=== PATIENT | female | born 1960 | race Caucasian/White ===

== ENCOUNTER → 2016-05-11 | Outpatient (CLI) | payer OTHER ==
[2016-05-11 12:38] LABS: Basophils # (A) 0.1 k/uL (0-0.2); Basophils % (A) 1 %; CH 29.5; CHCM 32.8; Eosinophils # (A) 0.2 k/uL (0-0.7); Eosinophils % (A) 2 %; HCT 48.3 % (34.0-46.0); HDW 2.38; HGB 15.5 gm/dL (11.4-16.0); Luc % (Auto) 3; Lymphocytes # (A) 2.6 k/uL (1.0-4.8); Lymphocytes % (A) 33 %; MCHC 32.1 g/dL (31.0-37.0); MCV 90.5 fL (80.0-100.0); Mean Platelet Volume 7.5; Monocytes # (A) 0.5 k/uL (0-1.0); Monocytes % (A) 6 %; Neutrophils # (A) 4.4 k/uL (1.3-7.7); Neutrophils % (A) 56 %; RBC 5.34 m/uL (3.80-5.40); RDW 13.1 % (11.5-15.5); WBC 7.9 k/uL (3.8-10.6); WBC (Perox) 8.14
[2016-05-11 13:02] LABS: ALT 34 U/L (9-52); AST 21 U/L (14-36); Alkaline Phosphatase 75 U/L (38-126); Bilirubin, Delta 0.5 mg/dL (0.0-0.2); Total Bilirubin 0.8 mg/dL (0.2-1.3); Total Protein 6.8 g/dL (6.3-8.2)
[2016-05-11 14:17] LABS: Carbamazepine (Tegretol) <3.0 ug/mL
== END | disposition home or self-care (01) ==
LOC: LABWHC1 12:09
PROVIDERS: ATTEND Nurse Practitioner Family
DX: Z51.81 Encounter for therapeutic drug level monitoring (principal); Z79.899 Other long term (current) drug therapy
CPT/HCPCS: 36415; 80076; 80156; 85025

== ENCOUNTER 2016-10-03 16:37 | Emergency (ER) | payer OTHER ==
[2016-10-03] MEDS ORDERED: ASPIRIN 81 MG CHEW PO STA (16:59)
[2016-10-03] MEDS ORDERED: NITROGLYCERIN OINT 1 INCH/GM PACKET TOPICAL STA (16:59)
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
[2016-10-03 17:24] LABS: Basophils # (A) 0.1 k/uL (0-0.2); Basophils % (A) 1 %; CH 29.8; CHCM 32.7; Eosinophils # (A) 0.2 k/uL (0-0.7); Eosinophils % (A) 2 %; HCT 46.6 % (34.0-46.0); HDW 2.37; HGB 15.3 gm/dL (11.4-16.0); Luc % (Auto) 3; Lymphocytes # (A) 3.4 k/uL (1.0-4.8); Lymphocytes % (A) 34 %; MCH 29.9 pg (25.0-35.0); MCHC 32.7 g/dL (31.0-37.0); MCV 91.5 fL (80.0-100.0); Mean Platelet Volume 7.2; Monocytes # (A) 0.4 k/uL (0-1.0); Monocytes % (A) 4 %; Neutrophils # (A) 5.7 k/uL (1.3-7.7); Neutrophils % (A) 57 %; WBC 10.1 k/uL (3.8-10.6); WBC (Perox) 9.56
[2016-10-03 17:31] LABS: Partial Thromboplastin Time 25.1 sec (22.0-30.0); Prothrombin Time 10.1 sec (9.0-12.0)
[2016-10-03 17:32] LABS: ALT 24 U/L (9-52); AST 19 U/L (14-36); Alkaline Phosphatase 88 U/L (38-126); Anion Gap 10 mmol/L; Blood Urea Nitrogen 8 mg/dL (7-17); Carbon Dioxide 18 mmol/L (22-30); Chloride 113 mmol/L (98-107); Glucose 99 mg/dL (74-99); Non-African American GFR(MDRD) >60 (>60 ml/min/1.73 sqM); Potassium 3.6 mmol/L (3.5-5.1); Sodium 141 mmol/L (137-145); Total Bilirubin 0.4 mg/dL (0.2-1.3); Total Protein 6.8 g/dL (6.3-8.2)
[2016-10-03 17:59] LABS: Creatine Kinase 88 U/L (30-135)
[2016-10-03 18:00] VITALS: TEMP 98.3
--- NOTE | 2016-10-03 18:08 | XR ---
EXAMINATION TYPE: XR chest 2V DATE OF EXAM: 10/03/2016 COMPARISON: 12/26/2015 HISTORY: Chest pain TECHNIQUE: Frontal and lateral views of the chest are obtained. FINDINGS: There is no heart failure nor confluent pneumonic infiltrate. There are chest leads. There are no hilar masses. Bony thorax is intact. IMPRESSION: Normal chest. No change.
[2016-10-03 18:11] LABS: Creatine Kinase MB 0.7 ng/mL (0.0-2.4); Troponin I <0.012 ng/mL (0.000-0.034)
[2016-10-03] MEDS ORDERED: NITROGLYCERIN SL TABS 0.4 MG TAB SUBLINGUAL PRN (18:55)
[2016-10-03 19:23] VITALS: BP 154/80; PULSE 53; RESP 20
[2016-10-04] MEDS ORDERED: NITROGLYCERIN OINT 1 INCH/GM PACKET TOPICAL SCH
[2016-10-04] MEDS ORDERED: ASPIRIN 325 MG TAB PO SCH (09:00)
== END 2016-10-03 20:40 | disposition left against medical advice (07) ==
LOC: EC 16:37 → 3OBS 18:56 → UNDOADMOB 18:56 → EC 20:40
DX: R07.9 Chest pain, unspecified (principal); R06.02 Shortness of breath; J44.9 Chronic obstructive pulmonary disease, unspecified; M79.7 Fibromyalgia; M19.90 Unspecified osteoarthritis, unspecified site; G40.909 Epilepsy, unspecified, not intractable, without status epilepticus; F41.0 Panic disorder [episodic paroxysmal anxiety]; F31.9 Bipolar disorder, unspecified; F17.200 Nicotine dependence, unspecified, uncomplicated; Z79.899 Other long term (current) drug therapy; Z79.82 Long term (current) use of aspirin; Z79.02 Long term (current) use of antithrombotics/antiplatelets; Z79.51 Long term (current) use of inhaled steroids; Z86.73 Personal history of transient ischemic attack (TIA), and cerebral infarction without residual deficits; Z95.818 Presence of other cardiac implants and grafts
CPT/HCPCS: 36415; 71020; 80053; 82550; 82553; 83735; 84484; 85025; 85610; 85730; 93005; 99285

== ENCOUNTER → 2016-10-04 | Outpatient (CLI) | payer OTHER ==
--- NOTE | 2016-10-04 13:19 | MM ---
Reason for exam: screening (asymptomatic). Last mammogram was performed 2 years and 3 months ago. History: Patient is postmenopausal and has history of ovarian cancer at age 34. Family history of breast cancer in maternal aunt, breast cancer in maternal grandmother, and breast cancer in paternal grandmother. Physical Findings: A clinical breast exam by your physician is recommended on an annual basis and results should be correlated with mammographic findings. MG Screening Mammo w CAD Bilateral CC and MLO view(s) were taken. Prior study comparison: July 16, 2014, bilateral MG screening mammo w CAD. May 18, 2010, bilateral digital screening mammo w/CAD. There are scattered fibroglandular densities. No significant changes when compared with prior studies. ASSESSMENT: Benign, BI-RAD 2 RECOMMENDATION: Routine screening mammogram of both breasts in 1 year.
== END | disposition home or self-care (01) ==
LOC: RADMAMWWP 11:27
PROVIDERS: ATTEND Family Medicine
DX: Z12.31 Encounter for screening mammogram for malignant neoplasm of breast (principal)

== ENCOUNTER → 2016-10-26 | Outpatient (CLI) | payer OTHER ==
--- NOTE | 2016-10-30 10:26 | XR ---
Left hip HISTORY: Chronic pain 2 views of the left hip No comparisons There is marginal spurring present, some remodeling present at the femoral head. Bone mineralization mildly reduced. Alignment and joint space maintained. Possible vascular calcification within the pelv is. IMPRESSION: Osteoarthritis
== END | disposition home or self-care (01) ==
LOC: RADXRYALE 15:54
PROVIDERS: ATTEND Physician Assistant Medical
DX: M16.12 Unilateral primary osteoarthritis, left hip (principal)
CPT/HCPCS: 73502

== ENCOUNTER 2017-03-12 09:28 | Day surgery (SDC) | payer OTHER ==
[2017-03-11 08:15] VITALS: BMI 28.4
[~2017-03-12 09:28] MED LIST: LACTATED RINGERS 1,000 ML IV SCH
[2017-03-12 10:00] VITALS: TEMP 97
[2017-03-12] MEDS ORDERED: LIDOCAINE 1% 20 ML VIAL (10MG/ML) FOR IV START INTRADERMA ONE (10:04)
[2017-03-12] MEDS ORDERED: PROPOFOL 10 MG/ML 20 ML VIAL IV ONE (10:50)
[2017-03-12] MEDS ORDERED: LIDOCAINE 1% INJ 10MG/ML (20 ML MDV) ONE (10:50)
--- NOTE | 2017-03-12 11:47 | P.PCN ---
Date of Procedure: 03/12/17 Procedure(s) Performed: Procedure: Esophagogastroduodenoscopy and biopsy. Preoperative diagnosis: Gastroesophageal reflux symptoms worsening over last year, nausea, vomiting and intermittent dysphagia. Postoperative diagnosis: 1. Sliding hiatal hernia with LA grade B distal esophagitis and possible eosinophilic esophagitis. 2. Mild antral gastritis. 3. Multiple biopsies obtained from the duodenum, antrum and esophagus. Preparation and sedation: Was provided by anesthesia. Brief clinical history: The patient is a 56-year-old female who is referred for this evaluation because of chronic gastroesophageal reflux symptoms that has progressed over the last year. She has been having worsening nausea and vomiting and intermittent dysphagia. She is not on any treatment at this time. This evaluation is scheduled to assess for complicated reflux disease or other pathology. Procedure: With the patient on her left lateral decubitus position and after informed consent and adequate sedation, I passed the Olympus-GIF 160 video upper endoscope through the cricopharyngeus down the esophagus. GE junction was around 38 cm from the incisors and there was a sliding 1-2 cm hiatal hernia. The esophagus showed short erosions and superficial ulcerations distally terminating at the level of the GE junction consistent with LA grade B distal esophagitis. There were no strictures or Roca's esophagus. The endoscope was then passed into the stomach which was insufflated with air and inspected in detail including the retroflex view in the cardia. There was some mottling and erythema in the antrum but no ulcers or erosions. Pyloric channel , duodenal bulb, post bulbar area and descending duodenum appeared within normal limits. I obtained biopsies from the duodenum, antrum and esophagus then the endoscope was withdrawn. The patient tolerated the procedure well. Plan: The patient was reassured. I advised antireflux diet and measures. I recommended PPI such as omeprazole 20 mg before breakfast daily and make further adjustments based on her response. I will see her in follow-up in few weeks and I will keep you updated on her progress. She will follow-up with you as planned.
[2017-03-12 12:09] VITALS: BP 138/73; PULSE 50; RESP 20
== END 2017-03-12 12:27 | disposition home or self-care (01) ==
LOC: ORWHC2ENDO 09:28
DX: K21.0 Gastro-esophageal reflux disease with esophagitis (principal); K29.50 Unspecified chronic gastritis without bleeding; K44.9 Diaphragmatic hernia without obstruction or gangrene; I10 Essential (primary) hypertension; E78.5 Hyperlipidemia, unspecified; J44.9 Chronic obstructive pulmonary disease, unspecified; M79.7 Fibromyalgia; M19.90 Unspecified osteoarthritis, unspecified site; R56.9 Unspecified convulsions; F17.200 Nicotine dependence, unspecified, uncomplicated; Z79.891 Long term (current) use of opiate analgesic; Z79.02 Long term (current) use of antithrombotics/antiplatelets; Z79.82 Long term (current) use of aspirin; Z79.899 Other long term (current) drug therapy; Z86.73 Personal history of transient ischemic attack (TIA), and cerebral infarction without residual deficits
CPT/HCPCS: 43239; 88342; 88305; J2001; J2704

== ENCOUNTER → 2017-05-02 | Outpatient (CLI) | payer OTHER ==
--- NOTE | 2017-05-03 08:14 | XR ---
EXAMINATION TYPE: XR ribs RT w pa chest xray DATE OF EXAM: 05/02/2017 COMPARISON: NONE HISTORY: Pain TECHNIQUE: One view the chest and 5 views of the ribs are submitted FINDINGS: Lung is clear. No pleural effusion arthropathy of the shoulder. Rib cage is intact IMPRESSION: No acute displaced rib fracture.
== END | disposition home or self-care (01) ==
LOC: RADXRYALE 16:50
PROVIDERS: ATTEND Physician Assistant Medical
DX: S20.219A Contusion of unspecified front wall of thorax, initial encounter (principal)

== ENCOUNTER → 2017-07-04 | Outpatient (CLI) | payer OTHER ==
--- NOTE | 2017-07-04 11:47 | XR ---
EXAMINATION TYPE: XR knee complete bilateral DATE OF EXAM: 07/04/2017 COMPARISON: NONE HISTORY: Pain TECHNIQUE: 3 views are submitted bilaterally. FINDINGS: There is mild narrowing of the medial compartment of the knee joint and patellofemoral joint. Hypertr ophic spurring is noted involving the patella bilaterally. There is no acute fracture or dislocation. No erosive changes. IMPRESSION: 1. Mild osteoarthritis.
== END | disposition home or self-care (01) ==
LOC: RADXRYALE 11:16
PROVIDERS: ATTEND Physician Assistant Medical
DX: M17.11 Unilateral primary osteoarthritis, right knee (principal); M17.12 Unilateral primary osteoarthritis, left knee

== ENCOUNTER → 2019-01-05 | Outpatient (CLI) | payer OTHER ==
--- NOTE | 2019-01-05 17:21 | XR ---
Cervical spine HISTORY: Chronic pain and arm numbness 5 views of the cervical spine There is multilevel facet and uncovertebral joint arthropathy change present. Foraminal encroachment is present at C5-6 bilaterally, some right-sided foraminal encroachment at C3-4. There is multilevel spondylosis especially C5-6 and C6-7. Loss of disc height is present at intervertebral levels. C7-T1 is not well seen. Loss of normal cervical lordosis could be due to muscle spasm. Prevertebral soft ti ssues are normal. IMPRESSION: Degenerative disc disease, multilevel foraminal encroachment, facet arthropathy.
--- NOTE | 2019-01-06 08:27 | XR ---
Lumbosacral spine HISTORY: Pain, numbness in legs 5 views of the lumbosacral spine Lumbar vertebral bodies show preserved height and alignment. Bone mineralization is reduced. There is multilevel spondylosis. No evident spondylolysis. Loss of disc height present at the intervertebral levels especially L3-4, L4-5 and L5-S1. Sclerosis present in the posterior elements. Vascular calcifi cations noted incidentally in the aortoiliac distribution. IMPRESSION: Degenerative disc disease, facet arthropathy, osteopenia.
== END | disposition home or self-care (01) ==
LOC: RADXRYALE 15:54
PROVIDERS: ATTEND Physician Assistant Medical
DX: M50.30 Other cervical disc degeneration, unspecified cervical region (principal); M46.92 Unspecified inflammatory spondylopathy, cervical region; M51.36 Other intervertebral disc degeneration, lumbar region; M46.96 Unspecified inflammatory spondylopathy, lumbar region; M85.88 Other specified disorders of bone density and structure, other site
CPT/HCPCS: 72050; 72110

== ENCOUNTER → 2019-01-16 | Outpatient (CLI) | payer OTHER ==
--- NOTE | 2019-01-21 15:11 | P.ARTDOP ---
Arterial Doppler LOWER EXTREMITY ARTERIAL DOPPLER: DATE OF SERVICE: 01/16/2019 Reason for study: Bilateral leg pain. Doppler waveforms: Multiphasic bilaterally throughout. Pulse volume recording: []. Pressure gradients: None. Ankle-brachial indices: Greater than 1 bilaterally. Toe pressures: [] on the right, [] on the left Impression: Normal study.
== END | disposition home or self-care (01) ==
LOC: RADUSWWP 13:24
PROVIDERS: ATTEND Family Medicine
DX: M79.605 Pain in left leg (principal); M79.604 Pain in right leg; I25.10 Atherosclerotic heart disease of native coronary artery without angina pectoris; E78.5 Hyperlipidemia, unspecified
CPT/HCPCS: 93922

== ENCOUNTER → 2019-01-28 | Outpatient (CLI) | payer OTHER ==
--- NOTE | 2019-01-28 14:42 | MR ---
EXAMINATION TYPE: MR cervical spine wo con DATE OF EXAM: 01/28/2019 COMPARISON: Cervical spine x-rays dated 01/05/2019 HISTORY: Other cervical disc degeneration. Chronic neck pain. TECHNIQUE: Multiplanar, multisequence images of the cervical spine were acquired. FINDINGS: The cervical spine vertebral bodies maintain normal vertebral body heights and alignment. M ultilevel disc desiccation is seen. Spinal cord demonstrates mildly T2 hyperintense signal at the C6- C7 intervertebral level on sagittal T2-weighted nonfat sat image 7. This is ill-defined and not measu rable. There is volume loss of the cord related to myelomalacia rather than edema. Schmorl's node is seen in the inferior endplate of C6. No prevertebral soft tissue swelling. No bone marrow edema. Bone marrow signal is within normal limits. C2-C3: There is a focal central disc herniation contacting the ventral cervical cord creating mild sp inal canal stenosis. No neural foraminal narrowing. C3-C4: There is a small central disc herniation and uncovertebral hypertrophy creating mild bilateral neural foraminal narrowing and mild spinal canal stenosis. C4-C5: There is a small central disc herniation with slight mass effect on the ventral cervical cord obliterating the ventral subarachnoid space causing mild spinal canal stenosis. No significant neural foraminal narrowing. C5-C6: There is a left paracentral disc herniation creating moderate spinal canal stenosis with impre ssion on the spinal cord. This also creates severe left neural foraminal narrowing in combination wit h facet arthropathy and uncovertebral hypertrophy and moderate right neural foraminal narrowing. C6-C7: There is a left paracentral disc herniation with mass effect on the left lateral spinal cord a nd mild volume loss with slightly abnormal signal on sagittal images related to mild myelomalacia. Th ere is also uncovertebral hypertrophy and facet arthropathy creating severe left neural foraminal jerrod rowing and mild right neural foraminal narrowing. C7-T1: There is a broad-based disc bulge and disc desiccation without spinal canal stenosis nor neura l foraminal narrowing. IMPRESSION: 1. Left paracentral disc herniation at C5-C6 creating moderate spinal canal stenosis and severe left neural foraminal narrowing as well as moderate right neural foraminal narrowing secondary to degenera tive change. 2. Left paracentral disc herniation at C6-C7 creates moderate spinal canal stenosis and there is resu ltant mild focal myelomalacia subtly seen. There is also severe left neural foraminal narrowing and m ild right neural foraminal narrowing. 3. Small central disc herniations at C2-C5 creating mild spinal canal stenosis at these levels. Varia ble degrees of neural foraminal narrowing are detailed above on the basis of degenerative change.
== END | disposition home or self-care (01) ==
LOC: RADMRIMAIN 11:31
PROVIDERS: ATTEND Family Medicine
DX: M48.02 Spinal stenosis, cervical region (principal); M50.21 Other cervical disc displacement, high cervical region; M47.812 Spondylosis without myelopathy or radiculopathy, cervical region; G95.89 Other specified diseases of spinal cord
CPT/HCPCS: 72141

== ENCOUNTER → 2019-04-24 | Outpatient (CLI) | payer OTHER ==
--- NOTE | 2019-04-27 08:30 | XR ---
EXAMINATION TYPE: XR chest 2V DATE OF EXAM: 04/24/2019 COMPARISON: 05/02/2017 HISTORY: 58-year-old female preoperative evaluation TECHNIQUE: Frontal and lateral views FINDINGS: Heart upper limits of normal in size. Aorta and pulmonary vasculature within normal limits. Mild inte rstitial prominence is unchanged. No consolidation or pleural effusion. IMPRESSION: Chronic changes without acute cardiopulmonary process.
== END | disposition home or self-care (01) ==
LOC: RADXRYALE 15:46
PROVIDERS: ATTEND Physician Assistant Medical
DX: Z01.818 Encounter for other preprocedural examination (principal)
CPT/HCPCS: 71046

== ENCOUNTER → 2019-05-08 | Outpatient (CLI) | payer OTHER | END | disposition home or self-care (01) | LOC: LABPAT 13:02 | PROVIDERS: ATTEND Orthopaedic Surgery Orthopaedic Surgery of the Spine | DX: Z01.812 Encounter for preprocedural laboratory examination (principal); M48.02 Spinal stenosis, cervical region; Z51.81 Encounter for therapeutic drug level monitoring | CPT/HCPCS: 80053; 85025; 85610; 85730; 86850; 86900; 86901 ==

== ENCOUNTER 2019-05-13 09:08 | Day surgery (SDC) | payer OTHER ==
[2019-05-07 12:45] VITALS: BMI 33.3
[2019-05-08 14:10] LABS: Basophils # (A) 0.1 k/uL (0-0.2); Basophils % (A) 1 %; Eosinophils # (A) 0.1 k/uL (0-0.7); Eosinophils % (A) 1 %; HCT 46.6 % (34.0-46.0); HGB 14.6 gm/dL (11.4-16.0); Lymphocytes % (A) 32 %; MCH 27.8 pg (25.0-35.0); MCHC 31.3 g/dL (31.0-37.0); MCV 88.8 fL (80.0-100.0); Mean Platelet Volume 7.3; Monocytes # (A) 0.5 k/uL (0-1.0); Monocytes % (A) 5 %; Neutrophils # (A) 5.4 k/uL (1.3-7.7); Neutrophils % (A) 58 %; Platelet Count 289 k/uL (150-450); RBC 5.24 m/uL (3.80-5.40); RDW 13.4 % (11.5-15.5); WBC 9.3 k/uL (3.8-10.6)
[2019-05-08 14:13] LABS: ALT 27 U/L (4-34); AST 29 U/L (14-36); African American GFR (CKD) >90 (>60 ml/min/1.73 sqM); Albumin 4.1 g/dL (3.5-5.0); Alkaline Phosphatase 72 U/L (38-126); Anion Gap 8 mmol/L; Blood Urea Nitrogen 11 mg/dL (7-17); Calcium 9.2 mg/dL (8.4-10.2); Carbon Dioxide 23 mmol/L (22-30); Chloride 107 mmol/L (98-107); Glucose 93 mg/dL (74-99); Non-African American GFR(CKD) 78 (>60 ml/min/1.73 sqM); Potassium 4.5 mmol/L (3.5-5.1); Sodium 138 mmol/L (137-145); Total Bilirubin 0.4 mg/dL (0.2-1.3); Total Protein 6.8 g/dL (6.3-8.2)
[2019-05-08 14:33] LABS: INR 0.9 (<1.2); Partial Thromboplastin Time 22.9 sec (22.0-30.0); Prothrombin Time 9.8 sec (9.0-12.0)
[~2019-05-13 09:08] MED LIST changes: +BACITRACIN 50,000 UNIT, POLYMYXIN B 500,000 UNIT in SODIUM CHLORIDE 0.9% IRRIGATIO 1,00... IRRIGATION ONE; +DEXAMETHASONE SOD PHOSPHATE 10 MG/ML 1 ML VIAL IV ONE; +LIDOCAINE 1% 20 ML VIAL (10MG/ML) FOR IV START INTRADERMA PRN; +ONDANSETRON 4 MG/2 ML VIAL IVP ONE
[2019-05-13] MEDS ORDERED: MIDAZOLAM 2 MG/2 ML VIAL IV ONE (10:48)
[2019-05-13] MEDS ORDERED: SUCCINYLCHOLINE CHLORIDE 100 MG/5 ML SYR IV ONE (11:17)
[2019-05-13] MEDS ORDERED: ePHEDrine SULFATE/0.9% NACL/PF 50 MG/5 ML SYRINGE IV ONE (11:17)
[2019-05-13] MEDS ORDERED: PROPOFOL 10 MG/ML 20 ML VIAL IV ONE (11:17)
[2019-05-13] MEDS ORDERED: HYDROmorphone (PF) 1 MG/ML ONE (11:17)
[2019-05-13] MEDS ORDERED: WATER FOR INJECTION, STERILE 10 ML VIAL IV ONE (11:17)
[2019-05-13] MEDS ORDERED: fentaNYL (PF) 50 MCG/ML 2 ML AMP ONE (11:17)
[2019-05-13] MEDS ORDERED: DEXAMETHASONE SOD PHOS (MDV) 100 MG/10 ML VIAL ONE (11:17)
[2019-05-13] MEDS ORDERED: LIDOCAINE 1% INJ 10MG/ML (20 ML MDV) ONE (11:17)
[2019-05-13] MEDS ORDERED: LIDOCAINE 2%-EPI 1:100,000 20 ML VIAL SQ ONE (11:52)
[2019-05-13] MEDS ORDERED: BUPIVACAINE (PF) 0.5% 30 ML VIAL SQ ONE (11:52)
[2019-05-13] MEDS ORDERED: LACTATED RINGERS 1,000 ML IV ONE (12:14)
--- NOTE | 2019-05-13 13:05 | XR ---
Cervical spine HISTORY: Needle placement Single lateral view of the cervical spine submitted. There is an endotracheal tube and overlying leads. Needle is likely present within the C5-6 intervert ebral level, there is overlying artifact which may obscure detail. There is degenerative disc change present. IMPRESSION: Orthopedic localization
[2019-05-13] MEDS ORDERED: BENZOCAINE/MENTHOL LOZENG 1 EACH LOZENGE MUCOUS MEM PRN (13:19)
[2019-05-13] MEDS ORDERED: MAGNESIUM HYDROXIDE 2,400 MG/10 ML CUP PO PRN (13:19)
[2019-05-13] MEDS ORDERED: HYDROmorphone 0.5 MG/0.5 ML SYRINGE IVP PRN (13:19)
[2019-05-13] MEDS ORDERED: HYDROcodone/APAP 5-325MG 1 EACH TAB PO PRN (13:20)
[2019-05-13] MEDS ORDERED: ACETAMINOPHEN TAB 325 MG TAB PO PRN (13:20)
[2019-05-13] MEDS ORDERED: HYDROcodone/APAP 10-325MG 1 EACH TAB PO PRN (13:22)
[2019-05-13] MEDS ORDERED: tiZANidine 4 MG TAB PO PRN (13:22)
--- NOTE | 2019-05-13 13:27 | P.OP ---
Date of Procedure: 05/13/19 Preoperative Diagnosis: Severe cervical stenosis C5 6 C6 7, upper extremity radiculopathy, upper extremity weakness, degenerative disc disease, neck pain, Postoperative Diagnosis: Same Anesthesia: GETA Pathology: none sent Condition: stable Disposition: PACU Description of Procedure: BRIEF OPERATIVE NOTE Preoperative Diagnosis:Severe cervical stenosis C5 6 C6 7, herniated nucleus pulposis C5 6 C6 7, upper extremity radiculopathy, upper extremity weakness, degenerative disc disease, neck pain, Postoperative Diagnosis:Severe cervical stenosis C5 6 C6 7, herniated nucleus pulposis C5 6 C6 7, upper extremity radiculopathy, upper extremity weakness, degenerative disc disease, neck pain, Procedure: Anterior cervical decompression with discectomy and fusion C5 6 C6 7 Placement of interbody graft C5 6 C6 7 Application of anterior cervical plate C5 6 and 7 Surgeon: Dr. Torres Chief Lock Operator: Darion Jaimes is present throughout the entire the case persistence during positioning, dissection, exposure, visualization, and all crucial elements of the case as well as closure. Anesthesia: General anesthesia Estimated blood loss: Approximately 50 mL Complications: None apparent Components implanted: K2M Magoffin anterior cervical plate system with screws and Vikos interbody allograft bone graft Disposition: To recovery room in good stable condition. OPERATIVE INDICATIONS The patient has had long-standing issues in their neck and upper extremities. She is found have severe cervical stenosis with herniated nucleus pulposus and disc degeneration at C5 6 and C6 7 which quite well with her neck and upper extremity symptoms. She is not having any prolonged benefit despite aggressive conservative care. The patient has been through conservative treatment. We discussed various treatment options including surgery, and the patient wishes to proceed with surgery We discussed the risk, patient's alternatives and benefits of surgery including but not limited to, risk of bleeding risk of infection, risk of need for further surgery, risk of decreased, loss of motion, muscle function, malunion nonunion, hardware failure, nerve damage, paralysis, heart attack, and . OPERATIVE SUMMARY After discussing all the risks, patient alternatives and benefits at length, the patient elected to proceed with surgical intervention, signed informed consent, and presented for their procedure. The patient was seen and examined in the preoperative holding area and the surgical site was marked. The patient was given antibiotics and brought to the operating room. The patient was positioned on the operating room table in a supine position being careful to pad any bony prominences and pressure points. The patient was sedated and intubated by anesthesia in standard fashion. Once the airway and C- spine were stabilized the patient's arms were padded and tucked at her side, with her shoulders gently taped. The head was placed in a donut pad with the neck in good neutral alignment and position. We were careful to maintain the patient's cervical spine and good neutral alignment and position throughout. The patient was prepped and draped in a normal standard fashion. An appropriate timeout and keystone protocol performed. We were able to proceed with the surgery. The local wound area was infiltrated with local anesthetic. An incision was made transversely approximately 2-1/2 cm over the appropriate levels at C6. Dissection was taken down subcutaneously to the level of the platysma which was split in line with its fibers. Dissection was taken with a carotid approach, with the trachea and esophagus medial and the carotid sheath laterally. We dissected down to the anterior surface of the vertebral bodies at C5 6 and 7. Intraoperative x-ray was taken which showed a marker at the appropriate level at C5 6. With the appropriate level positively confirmed, we were able to proceed with discectomy at the appropriate levels starting at C5 6 and then moving to C6 7. All of the operative levels were exposed appropriately. Large anterior cervical osteophytes removed with a rongeur at C5 6 and 67. The patient had all their twitches back, and there was no evidence of recurrent laryngeal issue. The wound was copiously irrigated and suctioned dry as had been done periodically throughout the case. At the appropriate level/levels, I established an annulotomy with an 11 blade scalpel. A discectomy was performed with a combination of pituitary rongeurs, curettes, a high-speed bur, and Kerrison rongeurs. The posterior longitudinal ligament was taken down as were any posterior osteophytes. Note was made of significant disc herniation with severe central and bilateral foraminal stenosis. This was remedied and removed with the decompression. This gave good central and bilateral foraminal decompression. There is no evidence of any dural tear or leak. The endplates were prepared with a high-speed bur. With the endplates in good parallel position, I was able to size for the appropriate size interbody graft. The wound was irrigated and suctioned dry the graft was prepared and malleted into position. It had good alignment and position with the anterior surface flush with the anterior surface of the vertebral bodies. This was done similarly the appropriate levels first at C5 6 and then at C6 7. With the grafts intact, I was able to measure and contour and appropriate sized plate. The plate was positioned at the midline over the appropriate levels at C5 6 and 7. Screw holes were established with a hand drill and drill guide. Screws were placed in good alignment and position with excellent bony purchase. They were seated under the locking device. The construct was checked and found to be stable. Intraoperative x-ray was taken which showed good alignment and position of the implants at the appropriate levels. There was no evidence of any dural tear or leak. Good hemostasis was maintained. The wound was copiously irrigated and suctioned dry as had been done periodically throughout the case. The platysma was closed with absorbable suture. The subcutaneous tissue was closed. The subcuticular tissue was closed with absorbable suture. The wound was cleaned and dried and dressed appropriately. A soft cervical collar was placed appropriately. The patient was woken up by anesthesia, extubated, transferred back gently to their hospital bed and brought to the recovery room in good stable condition. The patient will be admitted to the hospital for appropriate postoperative care, medical management and monitoring. We will continue to follow them closely about the postoperative course.
[2019-05-13] MEDS ORDERED: SODIUM CHLORIDE 0.9% 1,000 ML IV SCH (13:30)
--- NOTE | 2019-05-13 13:30 | XR ---
Cervical spine HISTORY: Anterior cervical fusion and discectomy Single lateral view of the cervical spine admitted and correlated to prior exam and same dated earlie r time. Endotracheal tube remains in place. Patient is status post anterior cervical fusion and discectomy at C5-C7. C6 and C7 are not well seen. There is anatomic alignment as visualized. Spondylosis present a t C4 inferior endplate. IMPRESSION: Orthopedic follow-up.
[2019-05-13 13:40] VITALS: TEMP 97.8
[2019-05-13 13:54] VITALS: RESP 14
[2019-05-13] MEDS: HYDROmorphone 0.5 MG/0.5 ML SYRINGE IVP PRN ×2 (13:58→14:08)
[2019-05-13 14:22] VITALS: BP 135/78; PULSE 77
[2019-05-13] MEDS ORDERED: GABAPENTIN 300 MG CAP PO SCH (16:00)
[2019-05-13] MEDS ORDERED: TOPIRAMATE 25 MG TAB PO SCH (21:00)
[2019-05-13] MEDS ORDERED: traZODone HCL 100 MG TAB PO SCH (21:00)
[2019-05-13] MEDS ORDERED: lamoTRIgine 100 MG TAB PO SCH (21:00)
[2019-05-13] MEDS ORDERED: busPIRone HCl 5 MG TAB PO SCH (21:00)
[2019-05-13] MEDS ORDERED: VORTIOXETINE HYDROBROMIDE 20 MG TABLET PO SCH (21:00)
[2019-05-13] MEDS ORDERED: ATORVASTATIN 10 MG TAB PO SCH (21:00)
[2019-05-14] MEDS ORDERED: SENNOSIDES-DOCUSATE SODIUM 1 EACH TAB PO SCH (09:00)
[2019-05-14] MEDS ORDERED: CLOPIDOGREL 75 MG TAB PO SCH (09:00)
[2019-05-17] MEDS ORDERED: ERGOCALCIFEROL 50,000 UNIT CAP PO SCH (09:00)
== END 2019-05-13 16:27 | disposition home or self-care (01) ==
LOC: OR 09:08 → 4SSUR 13:25 → OR 16:27
PROVIDERS: ATTEND Orthopaedic Surgery Orthopaedic Surgery of the Spine
DX: M50.122 Cervical disc disorder at C5-C6 level with radiculopathy (principal); M50.022 Cervical disc disorder at C5-C6 level with myelopathy; M48.02 Spinal stenosis, cervical region; M43.12 Spondylolisthesis, cervical region; M25.78 Osteophyte, vertebrae; I10 Essential (primary) hypertension; J44.9 Chronic obstructive pulmonary disease, unspecified; M79.7 Fibromyalgia; R56.9 Unspecified convulsions; K21.9 Gastro-esophageal reflux disease without esophagitis; F32.9 Major depressive disorder, single episode, unspecified; H91.90 Unspecified hearing loss, unspecified ear; R26.81 Unsteadiness on feet; H53.8 Other visual disturbances; I25.10 Atherosclerotic heart disease of native coronary artery without angina pectoris; F41.1 Generalized anxiety disorder; F60.3 Borderline personality disorder; E78.2 Mixed hyperlipidemia; Z86.73 Personal history of transient ischemic attack (TIA), and cerebral infarction without residual deficits; Z87.891 Personal history of nicotine dependence; Z79.899 Other long term (current) drug therapy; Z97.2 Presence of dental prosthetic device (complete) (partial); Z79.02 Long term (current) use of antithrombotics/antiplatelets; Z90.710 Acquired absence of both cervix and uterus; Z87.11 Personal history of peptic ulcer disease; Z98.890 Other specified postprocedural states; Z82.49 Family history of ischemic heart disease and other diseases of the circulatory system; Z91.030 Bee allergy status; Z98.42 Cataract extraction status, left eye; Z98.41 Cataract extraction status, right eye
CPT/HCPCS: 86900; 86901; 80053; 85025; 85610; 85730; 86850; 72020; 22551; 22552; 22845; 20931; C1713 ×2; C1762; J2250; J0690; J2405; J2001; J3010; J1170 ×2; J1100; J0330; J2704

== ENCOUNTER → 2020-06-17 | Outpatient (CLI) | payer OTHER ==
--- NOTE | 2020-06-18 07:39 | MR ---
EXAMINATION TYPE: MR lumbar spine wo con DATE OF EXAM: 06/17/2020 COMPARISON: MRI lumbar spine May 14, 2014. Lumbar spine x-ray January 05, 2019 HISTORY: Chronic LBP, BLE numbness TECHNIQUE: Multiplanar, multisequence imaging of the lumbar spine is performed without IV contrast. FINDINGS: Sagittal images of the lumbar spine show vertebral body heights and alignment to remain sat isfactory. Multilevel disc desiccation redemonstrated. Mild disc space narrowing L3-L4 level redemons trated.. The conus medullaris remains normal in position and signal ending superior L1 level. Mild m ultilevel anterior spurring redemonstrated. Heterogeneous Modic type II endplate changes superior ant erior L4 level redemonstrated. Axial images at T12-L1 and L1-L2 levels remain within normal limits. Axial images at L2-L3 level redemonstrate mild to moderate facet degenerative changes and ligamentum flavum hypertrophy bilaterally felt stable. Axial images at L3-L4 level demonstrates mild broad disc protrusion minimally effacing anterior theca l sac along with mild to moderate facet degenerative changes and ligamentum flavum hypertrophy. Bilat eral neural foramina remain patent. No significant change from prior. Axial images at the L4-L5 level demonstrate moderate facet degenerative changes and ligamentum flavum hypertrophy with some effacement of the posterolateral thecal sac along with mild broad disc bulge m inimally effacing the anterior thecal sac and mild to minimal bilateral anterior inferior neural fora henrik narrowing. No significant change from prior. Axial images at L5-S1 level demonstrate mild to moderate facet degenerative changes bilaterally. Pers istent posterior annular tear and tiny central disc protrusion of the spinal canal is preserved. Left foraminal disc protrusion causes asymmetric left-sided mild neural foraminal narrowing. No definitiv e encroachment. No significant change from prior. Paraspinal muscle bulk is maintained. IMPRESSION: Multilevel degenerative changes in the mid to lower lumbar spine as detailed above. No si gnificant degenerative progression from 2015 MRI noted.
== END | disposition home or self-care (01) ==
LOC: RADMRIMAIN 21:44
PROVIDERS: ATTEND Physician Assistant Medical
DX: M47.816 Spondylosis without myelopathy or radiculopathy, lumbar region (principal)
CPT/HCPCS: 72148

== ENCOUNTER → 2020-12-16 | Outpatient (CLI) | payer OTHER ==
--- NOTE | 2020-12-16 11:05 | XR ---
EXAMINATION TYPE: XR ankle complete RT DATE OF EXAM: 12/16/2020 COMPARISON: NONE HISTORY: Pain FINDINGS: Three views of the ankle demonstrate the ankle mortise to be intact and symmetric. The joint spaces are preserved. The osseous structures are intact. Large calcaneal spurs and well-corticated density adjacent to lateral malleolus compatible with remote trauma. IMPRESSION: 1. Large calcaneal spurs.
== END | disposition home or self-care (01) ==
LOC: RADXRYALE 10:48
PROVIDERS: ATTEND Physician Assistant Medical
DX: M77.31 Calcaneal spur, right foot (principal)

== ENCOUNTER → 2021-08-22 | Outpatient (CLI) | payer OTHER ==
--- NOTE | 2021-08-22 15:57 | XR ---
Right foot and right ankle HISTORY: Pain and Achilles area and top of first metatarsophalangeal joint 3 views of the right ankle and 3 views of the right foot Osteoarthritic changes present at the first metatarsophalangeal joint, there may be slight hallux ronald nicole deformity present. Bone mineralization is maintained. There is no fracture or dislocation. There is a plantar calcaneal spur. Enthesophyte is present at the insertion of the Achilles tendon. Some de generative changes also present at the tarsometatarsal joints. IMPRESSION: Findings consistent with patient's clinical abnormalities.
== END | disposition home or self-care (01) ==
LOC: RADXRYALE 15:32
PROVIDERS: ATTEND Physician Assistant Medical
DX: M19.071 Primary osteoarthritis, right ankle and foot (principal)

== ENCOUNTER → 2023-01-03 | Outpatient (CLI) | payer OTHER ==
--- NOTE | 2023-01-03 16:13 | US ---
EXAMINATION TYPE: US arterial LE single level DATE OF EXAM: 01/03/2023 3:29 PM CLINICAL INDICATION: Female, 62 years old with history of R09.89 OTH SYMPTOMS AND SIGNS INVOLVING THE CIRC A; Prior ABHISHEK exam in 2019 History of: Smoker: Previous Hypertension: Yes Diabetic: No Hyperlipidemia: Yes TIA/CVA: Yes, 7 years ago Previous Vascular Surgery: No MT: ?? Claudication: Bilateral Gangrene: No Doppler Waveforms: Right: Multiphasic Left: Multiphasic Right Brachial Pressure: 161 Left Brachial Pressure: 156 Ankle-Brachial Indices: Right: 1.19 Left: 1.20 Toe Brachial Indices: Right: 0.94 Left: 0.83 IMPRESSION: Ankle-brachial indices within normal limits bilaterally.
== END | disposition home or self-care (01) ==
LOC: RADUSWWP 13:52
PROVIDERS: ATTEND Family Medicine
DX: E78.2 Mixed hyperlipidemia (principal); R09.89 Other specified symptoms and signs involving the circulatory and respiratory systems
CPT/HCPCS: 93922